=== PATIENT | male | born 1960 | race Caucasian/White ===

== ENCOUNTER 2021-11-29 09:26 | Outpatient (CLI) | payer BC, SELFPAY ==
--- NOTE | ~2021-11-29 | CT_ITS ---
EXAMINATION: CT lung screening DATE: 11/29/2021 09:54 INDICATION: History of tobacco dependence TECHNIQUE: Computed tomography (CT) of the chest was performed without intravenous contrast. The dose -length product was 106.98 mGy-cm. Automated exposure control and iterative reconstruction technique were employed. COMPARISON: None FINDINGS: Heart size normal. There is atherosclerosis of the aorta and coronary arteries. No thoracic lymphadenopathy. There is right renal atrophy. Otherwise, the upper abdomen is unremarkable. There i s apical pleural thickening/scarring. There is emphysema. There is a pleural-based nodularity bilater ally. There are upper lobe nodules all measuring 4 mm or less. No endobronchial lesions. No pneumotho rax. No acute osseous abnormality. There is emphysema. IMPRESSION: 1. Lung-RADS category 2: Benign appearance or behavior. Continue annual screening with noncontrast lo w-dose chest CT in 12 months. Reviewed, dictated and finalized at location A. IMPRESSION: 1. Lung-RADS category 2: Benign appearance or behavior. Continue annual screeni ng with noncontrast low-dose chest CT in 12 months.
== END 2021-11-29 09:27 | disposition home or self-care (01) ==
PROVIDERS: PCP Family Medicine; Visit Provider Family Medicine
DX: Z12.2 Encounter for screening for malignant neoplasm of respiratory organs (principal); Z87.891 Personal history of nicotine dependence
CPT/HCPCS: 71271